=== PATIENT | male | born 1995 | race Caucasian/White ===

== ENCOUNTER 2020-02-01 17:06 | Emergency (ER) | payer OTHER ==
[~2020-02-01] VITALS: Ht 185.4 cm; Wt 97.6 kg
[2020-02-01] MEDS ORDERED: EXCETAB33 PO (17:12)
[2020-02-01] MEDS ORDERED: diphenhydrAMINE 50MG/ML VIAL (J1200) IV ONE (18:15)
[2020-02-01] MEDS ORDERED: NS 1,000 ML IV ONE (18:15)
[2020-02-01] MEDS ORDERED: METOCLOPRAMIDE INJ 10MG/2ML VIAL (J2765 PER 1) IV ONE (18:15)
--- NOTE | 2020-02-01 18:33 | REPVR ---
PROCEDURE INFORMATION: Exam: CT Head Without Contrast Exam date and time: 02/01/2020 6:21 PM Age: 24 years old Clinical indication: Pain; Other: Severe right sided headache TECHNIQUE: Imaging protocol: Computed tomography of the head without contrast. Radiation optimization: All CT scans at this facility use at least one of these dose optimization techniques: automated exposure control; mA and/or kV adjustment per patient size (includes targeted exams where dose is matched to clinical indication); or iterative reconstruction. COMPARISON: No relevant prior studies available. FINDINGS: Brain: Normal. No hemorrhage. Unremarkable white matter. No mass effect. Ventricles: Normal. No ventriculomegaly. Bones/joints: Unremarkable. Sinuses: Retention cyst or small mucocele in the posterior ethmoid sinus on the left. No bone expansion or destruction. Mastoid air cells: Visualized mastoid air cells are well aerated. Soft tissues: Unremarkable. IMPRESSION: No acute intracranial findings. Electronically signed by: Beni Rios On 02/01/2020 18:32:46 PM
[2020-02-01] MEDS ORDERED: KETOROLAC 30 MG/ML 1ML VIAL IV ONE (19:00)
[2020-02-01] MEDS ORDERED: KETO10TAB PO (19:42)
[2020-02-01 19:49] VITALS: BP 110/54
== END 2020-02-01 19:58 | disposition home or self-care (01) ==
LOC: M ED 17:06
DX: F07.81 Postconcussional syndrome (principal); Z87.820 Personal history of traumatic brain injury
CPT/HCPCS: 70450; 96361; 96374; 96375; 99284; J1200; J1885; J2765

== ENCOUNTER → 2020-06-29 | Outpatient (CLI) | payer OTHER ==
[~2020-06-29] MED LIST: EXCETAB33 PO; KETO10TAB PO
--- NOTE | 2020-06-30 12:19 | ECHO ---
DATE OF PROCEDURE: 06/29/2020 Age: 24 Gender: Male Height: 75 inches Weight: 250 pounds REFERRING PHYSICIAN: James Myers M.D. INDICATION: Chest pain, unspecified. MEASUREMENTS: 2D Measurements: Left atrium 4.3 cm Left ventricle diastole 5.6 cm Intraventricular septum 1.04 cm Posterior wall 1.08 cm Aortic root 3.1 cm Inferior vena cava 1.7 cm (more than 50% respiratory variation) Doppler Measurements: No aortic stenosis No aortic regurgitation Aortic valve velocity 124 cm/s LVOT velocity 90.2 cm/s No mitral regurgitation Mitral E velocity 62.2 cm/s Mitral A velocity 30.6 cm/s Mitral deceleration time 180 msec Mild tricuspid regurgitation Estimated right ventricular systolic pressure 24-29 mmHg Estimated right atrial pressure 5-10 mmHg No pulmonic regurgitation Pulmonary artery acceleration time 187 msec suggestive of normal pulmonary artery systolic pressure. MITRAL ANNULAR TISSUE DOPPLER E prime septal 8.2 cm/s, E prime lateral 11.6 cm/s DESCRIPTION: Rhythm was sinus bradycardia. Image quality was good. This was a 2D, M-mode, color flow Doppler, and pulsed wave Doppler examination including mitral annular tissue Doppler. CONCLUSIONS: 1. Normal echocardiogram Doppler. 2. Normal left ventricle internal dimensions and wall thickness. Normal regional left ventricular (LV) wall motion and wall thickening. Normal left ventricular (LV) systolic function. Left ventricular ejection fraction (LVEF) 65% by visual estimate. Normal left ventricular (LV) diastolic function. 3. No pericardial effusion. MTDD
== END ==
LOC: M CARPUL 09:00
PROVIDERS: ATTEND Internal Medicine
DX: R07.9 Chest pain, unspecified (principal)

== ENCOUNTER 2020-11-11 20:21 | Emergency (ER) | payer OTHER ==
[~2020-11-11] VITALS: Ht 190.5 cm; Wt 117.4 kg
[2020-11-11 20:21] VITALS: BP 134/77
[2020-11-11] MEDS ORDERED: AMIT10TA7 PO (20:33)
[2020-11-11] MEDS ORDERED: FLUO20CA22 PO (20:33)
[2020-11-11] MEDS ORDERED: DULO1CAP4 PO (20:33)
[2020-11-11] MEDS ORDERED: OMEP40CA97 PO (20:33)
[2020-11-11] MEDS ORDERED: PRAZ1CAP PO (20:33)
[2020-11-11] MEDS ORDERED: TOPI50TA9 PO (20:33)
[2020-11-11] MEDS ORDERED: DOXYCYCLINE HYCLATE 100MG TABLET PO ONE (21:20)
[2020-11-11] MEDS ORDERED: DOXY100C37 PO (21:29)
[2020-11-11 21:56] LABS: BASO % 0.4 % (0.0-1.0); EOS # 0.2 10^3/uL (0.0-0.5); EOS % 2.9 % (0.0-3.0); HEMATOCRIT 43.9 % (42.0-52.0); LYMPH % 25.9 % (24.0-44.0); MEAN CORPUSCULAR HEMOGLOBIN 28.8 pg (27.0-33.0); MEAN CORPUSCULAR HGB CONC 34.2 g/dl (32.0-36.5); MEAN CORPUSCULAR VOLUME 84.4 fl (80.0-96.0); MONO # 0.6 10^3/uL (0.0-0.8); MONO % 7.5 % (2.0-8.0); NEUTROPHILS # 4.8 10^3/uL (1.5-8.5); NEUTROPHILS % 62.9 % (36.0-66.0); PLATELET COUNT, AUTOMATED 279 10^3/uL (150-450); WHITE BLOOD COUNT 7.7 10^3/uL (4.0-10.0)
[2020-11-13 16:08] LABS: Lyme Disease IgG/IgM Antibodie <0.91 ISR (0.00-0.90); Lyme Disease IgM Ab Quantitati <0.80 index (0.00-0.79)
== END 2020-11-11 21:50 | disposition home or self-care (01) ==
LOC: M ED 20:21
DX: S80.861A Insect bite (nonvenomous), right lower leg, initial encounter (principal); W57.XXXA Bitten or stung by nonvenomous insect and other nonvenomous arthropods, initial encounter; Y92.9 Unspecified place or not applicable; Y93.9 Activity, unspecified; Y99.9 Unspecified external cause status; R51.9 Headache, unspecified